=== PATIENT | male | born 1980 | race Caucasian/White ===

== ENCOUNTER → 2021-03-28 10:22 | Outpatient (CLI) | payer MEDICAID, SELFPAY ==
--- NOTE | 2021-03-28 11:50 | NEURO_ITS ---
NCS and/or EMG Patient Report Ordering Doctor: Vania Preciado DATE OF SERVICE: 03/28/21 Indication: Bilateral hand tingling and numbness (right greater than left). Worsening over several years. Symptoms are worse with using tools and riding his motorcycle. Evaluate for nerve entrapment. Findings: Nerve conduction studies were performed in the right and left upper extremities. The right median motor study recording the abductor pollicis brevis showed a normal amplitude, prolonged distal latency and mildly slowed conduction velocity. The right ulnar motor study recording the abductor digiti minimi showed a normal amplitude, normal distal latency and normal conduction velocity. No conduction block or focal slowing was present across the elbow. The right median sensory response recording digit two showed a reduced amplitude, prolonged latency and markedly slowed conduction velocity. The right ulnar sensory response recording digit five showed a normal amplitude, latency and conduction velocity. The right radial sensory response recording over the extensor snuff box showed a normal amplitude, latency and conduction velocity. The left median motor study recording the abductor pollicis brevis showed a normal amplitude, borderline distal latency and borderline normal conduction velocity. The left ulnar motor study recording the abductor digiti minimi showed a normal amplitude, normal distal latency and normal conduction velocity. No conduction block or focal slowing was present across the elbow. Left median- ulnar lumbrical / interosseous motor latencies showed a prolonged median latency compared to the ulnar. The left median sensory response recording digit two showed a normal amplitude, normal latency and borderline conduction velocity. The left ulnar sensory response recording digit five showed a normal amplitude, latency and conduction velocity. The left radial sensory response recording over the extensor snuff box showed a normal amplitude, latency and conduction velocity. Needle EMG of the right upper extremity muscles was performed. No denervation was seen in any muscle. Motor units in the abductor pollicis brevis were slightly large amplitude and long duration with normal recruitment. All motor unit morphology, activation and recruitment patterns were normal. Impression: This is an abnormal study. There is electrophysiologic evidence of median neuropathy across both wrists (mild to moderate on the right, very mild on the left). These findings are compatible with the clinical diagnosis of carpal tunnel syndrome. Renny Jarrett D.O. Multi [employer] Codes Neurology Neurology Interp Codes: 45640-57 Musc test done w/n test comp (interp) and 84962-58 Nrv cndj test 11-12 studies (interp)
== END ==
PROVIDERS: PCP Physician Assistant Medical; Referring Provider Physician Assistant Medical; Visit Provider Physician Assistant Medical
DX: R20.0 Anesthesia of skin (principal)
CPT/HCPCS: 95886; 95912